=== PATIENT | male | born 1945 | race Caucasian/White ===

== ENCOUNTER 2017-03-05 13:03 | Inpatient (IN) | payer MEDICARE ==
[2017-03-05] MEDS ORDERED: Albuterol/Ipratropium NEB.SOL* Albuterol 2.5 MG/Ipratropium 0.5 MG 3 ML INH ONE (13:48)
[2017-03-05] MEDS ORDERED: cefTRIAXone(*) 1 GM in NS 0.9% 50 ML* 50 ML IVPB ONE (14:03)
[2017-03-05] MEDS ORDERED: Azithromycin IV(*) 500 MG in NS 0.9% 250 ML* 250 ML IVPB ONE (14:03)
[2017-03-05] MEDS: NS 0.9% 1000 ML*IV.FLUID IV ONE ×2 (14:08→16:10)
[2017-03-05 14:09] LABS: Hematocrit 43 % (42-52); Hemoglobin 14.6 g/dl (14.0-18.0); Mean Corpuscular HGB Conc 34 g/dl (31-36); Mean Corpuscular Hemoglobin 31 pg (27-31); Mean Corpuscular Volume 92 fL (80-94); Mean Platelet Volume 8 um3 (7.4-10.4); Platelet Count 394 10^3/ul (150-450); Red Blood Count 4.72 10^6/ul (4.0-5.4); Red Cell Distribution Width 14 % (10.5-15); White Blood Count 48.6 10^3/ul (3.5-10.8)
[2017-03-05 14:22] LABS: INR 1.2 (0.77-1.02)
[2017-03-05 14:26] LABS: EGFR Non-African American 138.1 (>60)
[2017-03-05] MEDS ORDERED: Iohexol 300* (CONTRAST) 10 ML SDV IV ONE (14:36)
[2017-03-05] MEDS ORDERED: cefTRIAXone(*) 1 GM in NS 0.9% 50 ML* 50 ML IVPB SCH (15:00)
--- NOTE | 2017-03-05 15:00 | ADMNOTE ---
Subjective Date of Service: 03/05/17 Interval History: ADMISSION HISTORY AND PHYSICAL EXAM: Allergies Allergy/AdvReac Type Severity Reaction Status Date / Time No Known Allergies Allergy Verified 03/05/17 13:26 Home medications: none HPI: Patient ill about a month with cough, some yellow sputum. Weight loss of 30 lbs in 3-4 months, poor appetite. No chills or sweats. He did not take his temperature. Some pain across lower anterior chest, did not use any analgesic. He saw Dr. Fisher and was referred for CXR and labs after which the Imaging staff advised him to go to the ED. Family History: Findings - mother had leiomyosarcome, brother had lung cancer Social History: Findings - Quit smoking about 1 1/2 yrs ago. No alcohol abuse. Lives with his who is his SDM. Past Medical History: Findings - R IHR 2010. Benign tumor removed from chest in remote past, also benign tumor from L back removed (? lipoma) On O2 2 L/min at home. Review of Systems - Measurements Intake and Output: Intake and Output Last 24 Hours 03/03/17 03/04/17 03/05/17 03/06/17 06:59 06:59 06:59 06:59 Weight 124 lb - Review of Systems Constitutional Symptoms: Positive: Weight Loss - 30 lbs in 3-4 months Dermatology: Positive: Normal HEENT: Positive: Normal Eyes: Positive: Normal Thyroid: Positive: Normal Pulmonary: Positive: Cough, Shortness of Breath, Home Oxygen Cardiology: Positive: Normal Gastroenterology: Positive: Anorexia Genital - Urinary: Positive: Normal Endocrinology: Positive: Normal Hematologic/Lymphatic: Negative: Anemia, Easy Brusing, Hx Leukemia, Hx Lymphoma, Use of Anticoagulant, Use of Antiplatelet Drugs, Other Neurology: Positive: Normal Psychiatry: Positive: Normal Allergic/Immunologic: Negative: Hx Anaphylaxis, Hx Angioedema, Hx Environmental, Hx Seasonal, Athsma, Hx HIV, Immunocompromise, Swollen Glands LymphNodes, Other Objective Active Medications: Hydrocodone Bitart/Acetaminophen ([place] 5-325 Tab*) 1 tab PO Q4H PRN PRN Reason: PAIN Sodium Chloride (Ns 0.9% 1000 Ml*) 1,000 mls @ 150 mls/hr IV PER RATE STEW Azithromycin 500 mg/ Sodium (Chloride) 250 mls @ 250 mls/hr IVPB ED ONCE ONE Stop: 03/05/17 15:02 Last Admin: 03/05/17 14:26 Dose: 250 mls/hr Ceftriaxone Sodium 1 gm/ (Sodium Chloride) 50 mls @ 200 mls/hr IVPB Q24H STEW Vital Signs - 8 hr 03/05/17 03/05/17 03/05/17 13:10 13:45 14:00 Temperature 97.8 F Pulse Rate 122 115 Respiratory 22 24 Rate Blood Pressure 117/60 137/86 123/84 (mmHg) O2 Sat by Pulse 94 98 Oximetry 03/05/17 14:19 Temperature Pulse Rate 105 Respiratory 30 Rate Blood Pressure (mmHg) O2 Sat by Pulse 96 Oximetry Oxygen Devices in Use Now: Nasal Cannula Appearance: Alert, sitting up on ED stretcher. In fair spirits. Mod tachypneic. Eyes: No Scleral Icterus Neck: NL Appearance and Movements; NL JVP, No Thyroid Enlargement, Masses Respiratory: Symmetrical Chest Expansion and Respiratory Effort, Clear to Auscultation, Clear to Percussion Cardiovascular: NL Sounds; No Murmurs; No JVD, RRR, No Edema, - Abdominal: NL Sounds; No Tenderness; No Distention, No Hepatosplenomegaly, - Lymphatic: No Cervical Adenopathy, No Axillary Adenopathy Extremities: No Edema, No Clubbing, Cyanosis, - Skin: No Rash or Ulcers, No Nodules or Sclerosis, - Neurological: Alert and Oriented x 3, NL Sensation Result Diagrams: 03/05/17 13:57 03/05/17 13:57 Microbiology and Other Data: Microbiology 03/05/17 14:15 Influenza Types A,B Antigen (KELBY) - Final Nasopharyngeal Specimen received for Influenza A/B Molecular testing Assess/Plan/Problems-Billing Assessment: - Patient Problems (1) Lung mass Current Visit: Yes Status: Acute Code(s): R91.8 - OTHER NONSPECIFIC ABNORMAL FINDING OF LUNG FIELD SNOMED Code(s): 656981231 Comment: CT w/contrast pending. Continue ceftriaxone and azith for possible post-obstructive PNA. (2) Hyponatremia Current Visit: Yes Status: Acute Code(s): E87.1 - HYPO-OSMOLALITY AND HYPONATREMIA SNOMED Code(s): 33911586 Comment: 1600 ml/day oral fluid restriction ordered. Repeat BMP in 2-3 days.
[2017-03-05 15:03] LABS: Monocytes % 14 % (0-13)
--- NOTE | 2017-03-05 15:09 | RAD ---
INDICATION: Right upper lobe mass, abnormal chest x-ray. COMPARISON: Correlation is made with a prior chest x-ray study from [facility] 2017. TECHNIQUE: A CT scan of the chest was performed with intravenous contrast following intravenous injection of 80 ml of Omnipaque 300 nonionic contrast. Contiguous axial sections were obtained from the lung apices through the lung bases. Images were reconstructed in the coronal and sagittal planes. FINDINGS: The lungs are hyperinflated. There is a large mass present in the right upper lobe which is heterogeneous in density measuring 14.5 x 15.4 x 10.0 cm in size. The mass abuts the lateral and mediastinal pleura. The mass appears to invade the chest wall eroding into the right lateral third and fourth ribs The mass encases the right upper lobe bronchus and narrows and surrounds the majority of the right mainstem bronchus except along its inferior aspect. In addition there are multiple pulmonary nodules present in the right lower lobe and a nodule in the right middle lobe. These measure up to 1.8 cm in size and would be most consistent with metastatic disease. No pleural effusion is seen. The mass extends into the right hilum. There are pretracheal and subcarinal lymph nodes measuring up to 1.2 cm in size consistent with metastatic disease. The heart is within normal limits in size. No pericardial effusion is present. The thoracic aorta is normal in caliber. Images of the upper abdomen demonstrate heterogeneous enhancement of the spleen. No focal hepatic abnormality is visualized. The adrenal glands are within normal limits. There is a small right renal cyst. There is a lucent lesion in the T7 vertebral body. The imaging characteristics would favor a hemangioma. As noted previously there appear to be erosive changes and invasion of the right lateral third and fourth ribs. There is a mild subacute appearing compression fracture of the superior endplate of the L2 vertebral body. IMPRESSION: 1. LARGE RIGHT UPPER LOBE MASS WITH FINDINGS MOST CONSISTENT WITH INVASION OF THE LATERAL CHEST WALL. 2. ENLARGED MEDIASTINAL LYMPH NODES CONSISTENT WITH METASTATIC DISEASE. 3. MULTIPLE PULMONARY NODULES IN THE RIGHT LOWER AND MIDDLE LOBES MOST CONSISTENT WITH METASTATIC DISEASE. 4. FINDINGS SUGGESTIVE OF INVASION OF THE RIGHT LATERAL THIRD AND FOURTH RIBS. 5. SUBACUTE COMPRESSION FRACTURE OF THE SUPERIOR ENDPLATE OF THE L2 VERTEBRAL BODY.
[2017-03-05] MEDS ORDERED: cefTRIAXone(*) 1 GM ADVAN/BAG ONE (15:49)
[2017-03-05] MEDS: Enoxaparin(*) 40 MG/0.4 ML SYR SUBCUT SCH (17:26)
[2017-03-05] MEDS: HYDROcodone/ACETAMIN 5-325 MG* 1 TAB PO PRN (17:26)
[2017-03-05] MEDS: NS 0.9% 1000 ML* 1,000 ML IV SCH (18:16)
--- NOTE | 2017-03-05 20:14 | ED ---
Alpesh Doll Tecjoon, scribed for Jose Davies MD on 03/05/17 at 1409 . Shortness of Breath - HPI Summary HPI Summary: This patient is a 71 year old male presenting to [facility] with a chief complaint of SOB since 4-5 days ago. Patient states that he has been feeling sick since before [place], or 2 weeks ago. Patient states that he was referred to ED by on-call doctor for pneumonia. Patient states he has had an x-ray done already. The pain is rated 10/10 in severity and described as burning. Symptoms aggravated by nothing. Symptoms alleviated by nothing. Patient additionally reports productive cough with yellow/green phlegm, slightly blood-tinged, chest congestion, and chest pain. Patient denies pedal edema. - History of Current Complaint Chief Complaint: EDUpperRespComplaint Time Seen by Provider: 03/05/17 13:31 Hx Obtained From: Patient Onset/Duration: Gradual Onset, Lasting Weeks - 2, Still Present, Worse Since - 4 -5 days ago Timing: Constant Current Severity: Severe - 10/10 Dyspnea At: Rest Aggrevating Factors: Nothing Associated Signs & Symptoms: Negative - pedal edema, Cough (Productive), Cough ( Bloody Sputum), Chest Pain w/Cough - Allergy/Home Medications Allergies/Adverse Reactions: Allergies Allergy/AdvReac Type Severity Reaction Status Date / Time No Known Allergies Allergy Verified 03/05/17 13:26 PMH/Surg Hx/FS Hx/Imm Hx Previously Healthy: Yes Opthamlomology History: Denies: Hx Legally Blind EENT History: Denies: Hx Deafness Infectious Disease History: No Infectious Disease History: Denies: Traveled Outside the [place] in Last 30 Days - Family History Known Family History: Positive: Diabetes - Social History Occupation: Retired Lives: With Family Alcohol Use: None Hx Substance Use: No Hx Tobacco Use: Yes Review of Systems Negative: Fever Positive: Chest Pain, Other - chest congestion Positive: Shortness Of Breath, Cough Negative: Edema All Other Systems Reviewed And Are Negative: Yes Physical Exam - Summary Physical Exam Summary: General: well-appearing, moderate respiratory distress Skin: warm, color reflects adequate perfusion, dry Head: normal Eyes: EOMI, JIE ENT: normal Neck: supple, nontender Respiratory: tachypnic. decreased breath sounds in right upper chest. good air flow elsewhere. Cardiovascular: Tachycardic. Abdomen: soft, nontender Bowel: present Musculoskeletal: normal, strength/ROM intact. No pedal edema Neurological: normal, sensory/motor intact, A&O x3 Psychological: affect/mood appropriate Triage Information Reviewed: Yes Vital Signs On Initial Exam: Initial Vitals Temp Pulse Resp BP Pulse Ox 97.8 F 122 22 117/60 94 03/05/17 13:10 03/05/17 13:10 03/05/17 13:10 03/05/17 13:10 03/05/17 13:10 Vital Signs Reviewed: Yes Diagnostics - Vital Signs Vital Signs Temp Pulse Resp BP Pulse Ox 03/05/17 13:10 97.8 F 122 22 117/60 94 - Laboratory Lab Results: Lab Results 03/05/17 03/05/17 03/05/17 Range/Units 13:57 13:57 13:57 WBC 48.6 H (3.5-10.8) 10^3/ul RBC 4.72 (4.0-5.4) 10^6/ul Hgb 14.6 (14.0-18.0) g/dl Hct 43 (42-52) % MCV 92 (80-94) fL MCH 31 (27-31) pg MCHC 34 (31-36) g/dl RDW 14 (10.5-15) % Plt Count 394 (150-450) 10^3/ul MPV 8 (7.4-10.4) um3 Neut % (Auto) Not Reportable Lymph % (Auto) Not Reportable Camp % (Auto) Not Reportable Eos % (Auto) Not Reportable Baso % (Auto) Not Reportable Absolute Neuts (auto) Not Reportable Absolute Lymphs (auto) Not Reportable Absolute Monos (auto) Not Reportable Absolute Eos (auto) Not Reportable Absolute Basos (auto) Not Reportable Absolute Nucleated RBC Not Reportable Immature Gran % 2 (0-9) % Neutrophils % 76 (38-83) % Band Neutrophils % 2 (0-8) % Lymphocytes % 3 L (25-47) % Monocytes % 14 H (0-13) % Eosinophils % 5 (0-6) % Basophils % 0 (0-2) % Nucleated RBC % Not Reportable Abs Neuts (Manual) 36.9 H (1.5-7.7) 10^3/ul Abs Monocytes (Manual) 6.8 H (0-0.8) 10^3/ul Absolute Eos (Manual) 2.4 H (0-0.6) 10^3/ul Abs Basophils (Manual) 0 (0-0.2) 10^3/ul Normal RBC Morphology Normal (Normal) Hem Pathologist Commnt Pending INR (Anticoag Therapy) 1.20 H (0.77-1.02) APTT 30.5 (26.0-36.3) seconds Sodium 127 L (133-145) mmol/L Potassium 4.2 (3.5-5.0) mmol/L Chloride 89 L (101-111) mmol/L Carbon Dioxide 29 (22-32) mmol/L Anion Gap 9 (2-11) mmol/L BUN 21 (6-24) mg/dL Creatinine 0.58 L (0.67-1.17) mg/dL Est GFR ( Amer) 177.6 (>60) Est GFR (Non-Af Amer) 138.1 (>60) BUN/Creatinine Ratio 36.2 H (8-20) Glucose 101 H (70-100) mg/dL Lactic Acid (0.5-2.0) mmol/L Calcium 11.8 H (8.6-10.3) mg/dL Total Bilirubin 0.80 (0.2-1.0) mg/dL AST 11 L (13-39) U/L ALT 10 (7-52) U/L Alkaline Phosphatase 87 (34-104) U/L Troponin I 0.01 (<0.04) ng/mL C-Reactive Protein 66.38 H (< 5.00) mg/L B-Natriuretic Peptide ( - 100) pg/mL Total Protein 7.6 (6.4-8.9) g/dL Albumin 3.4 (3.2-5.2) g/dL Globulin 4.2 H (2-4) g/dL Albumin/Globulin Ratio 0.8 L (1-3) Lipase < 10 L (11.0-82.0) U/L Influenza A (Rapid) (Negative) Influenza B (Rapid) (Negative) 03/05/17 03/05/17 03/05/17 Range/Units 13:57 13:57 14:22 WBC (3.5-10.8) 10^3/ul RBC (4.0-5.4) 10^6/ul Hgb (14.0-18.0) g/dl Hct (42-52) % MCV (80-94) fL MCH (27-31) pg MCHC (31-36) g/dl RDW (10.5-15) % Plt Count (150-450) 10^3/ul MPV (7.4-10.4) um3 Neut % (Auto) Lymph % (Auto) Camp % (Auto) Eos % (Auto) Baso % (Auto) Absolute Neuts (auto) Absolute Lymphs (auto) Absolute Monos (auto) Absolute Eos (auto) Absolute Basos (auto) Absolute Nucleated RBC Immature Gran % (0-9) % Neutrophils % (38-83) % Band Neutrophils % (0-8) % Lymphocytes % (25-47) % Monocytes % (0-13) % Eosinophils % (0-6) % Basophils % (0-2) % Nucleated RBC % Abs Neuts (Manual) (1.5-7.7) 10^3/ul Abs Monocytes (Manual) (0-0.8) 10^3/ul Absolute Eos (Manual) (0-0.6) 10^3/ul Abs Basophils (Manual) (0-0.2) 10^3/ul Normal RBC Morphology (Normal) Hem Pathologist Commnt INR (Anticoag Therapy) (0.77-1.02) APTT (26.0-36.3) seconds Sodium (133-145) mmol/L Potassium (3.5-5.0) mmol/L Chloride (101-111) mmol/L Carbon Dioxide (22-32) mmol/L Anion Gap (2-11) mmol/L BUN (6-24) mg/dL Creatinine (0.67-1.17) mg/dL Est GFR ( Amer) (>60) Est GFR (Non-Af Amer) (>60) BUN/Creatinine Ratio (8-20) Glucose (70-100) mg/dL Lactic Acid 2.0 (0.5-2.0) mmol/L Calcium (8.6-10.3) mg/dL Total Bilirubin (0.2-1.0) mg/dL AST (13-39) U/L ALT (7-52) U/L Alkaline Phosphatase (34-104) U/L Troponin I (<0.04) ng/mL C-Reactive Protein (< 5.00) mg/L B-Natriuretic Peptide 360 H ( - 100) pg/mL Total Protein (6.4-8.9) g/dL Albumin (3.2-5.2) g/dL Globulin (2-4) g/dL Albumin/Globulin Ratio (1-3) Lipase (11.0-82.0) U/L Influenza A (Rapid) Negative (Negative) Influenza B (Rapid) Negative (Negative) Result Diagrams: 03/05/17 13:57 03/05/17 13:57 Lab Statement: Any lab studies that have been ordered have been reviewed, and results considered in the medical decision making process. - CT CT Chest CT Interpretation: Positive (See Comments) - IMPRESSION: 1. LARGE RIGHT UPPER LOBE MASS WITH FINDINGS MOST CONSISTENT WITH INVASION OF THE LATERAL CHEST WALL. 2. ENLARGED MEDIASTINAL LYMPH NODES CONSISTENT WITH METASTATIC DISEASE 3. MULTIPLE PULMONARY NODULES IN THE RIGHT LOWER AND MIDDLE LOBES MOST CONSISTENT WITH METASTATIC DISEASE. 4. FINDINGS SUGGESTIVE OF INVASION OF THE RIGHT LATERAL THIRD AND FOURTH RIBS. 5. SUBACUTE COMPRESSION FRACTURE OF THE SUPERIOR ENDPLATE OF THE L2 VERTEBRAL BODY. ED physician has reviewed this radiology report. CT Interpretation Completed By: Radiologist - EKG 1359 Cardiac Rate: Tachycardia EKG Rhythm: Sinus Tachycardia - 109 BPM EKG Interpretation: Sinus Tachycardia (109 BPM), right atrial enlargement, no ectopy Course/Dx - Course Course Of Treatment: This patient is a 71 year old male presenting to [facility] with a chief complaint of SOB since 4-5 days ago. Patient states that he has been feeling sick since before [place], or 2 weeks ago. Patient states that he was referred to ED by on-call doctor for pneumonia. Patient states he has had an x-ray done already. The pain is rated 10/10 in severity and described as burning. Symptoms aggravated by nothing. Symptoms alleviated by nothing. Patient additionally reports productive cough with yellow/green phlegm, slightly blood-tinged, chest congestion, and chest pain. Patient denies pedal edema. An EKG, taken 1359, reveals Sinus Tachycardia (109 BPM), right atrial enlargement, no ectopy. CT Chest reveals, per radiologist, IMPRESSION: 1. LARGE RIGHT UPPER LOBE MASS WITH FINDINGS MOST CONSISTENT WITH INVASION OF THE LATERAL CHEST WALL. 2. ENLARGED MEDIASTINAL LYMPH NODES CONSISTENT WITH METASTATIC DISEASE 3. MULTIPLE PULMONARY NODULES IN THE RIGHT LOWER AND MIDDLE LOBES MOST CONSISTENT WITH METASTATIC DISEASE. 4. FINDINGS SUGGESTIVE OF INVASION OF THE RIGHT LATERAL THIRD AND FOURTH RIBS. 5. SUBACUTE COMPRESSION FRACTURE OF THE SUPERIOR ENDPLATE OF THE L2 VERTEBRAL BODY. ED physician has reviewed this radiology report. Bloodwork Obtained. Urinalysis Obtained. Medications reviewed In the ED course the patient was given Albuterol, Iohexol , Rocephin, Zithromax. ADMIT HOSPITALIST. CRITICAL CARE TIME LESS THAN 30 MINUTES. - Diagnoses Provider Diagnoses: Pneumonia, Lung cancer Discharge - Discharge Plan Condition: Fair Disposition: ADMITTED TO [facility] documentation as recorded by the Alpesh navarro Tecjoon accurately reflects the service I personally performed and the decisions made by , Jose Davies MD.
[2017-03-05] MEDS: oxyCODONE TAB* 5 MG TAB PO PRN (20:50)
[2017-03-05 23:29] LABS: Urine Appearance Clear; Urine Blood Negative (Negative); Urine Color Yellow; Urine Ketones Trace (Negative); Urine Protein Negative (Negative); Urine Specific Gravity > 1.060 (1.010-1.030); Urine Urobilinogen Positive (Negative)
[2017-03-06] MEDS: NS 0.9% 1000 ML* 1,000 ML IV SCH ×3 (03:05→22:25)
[2017-03-06] MEDS: HYDROcodone/ACETAMIN 5-325 MG* 1 TAB PO PRN ×3 (03:32→12:28)
[2017-03-06] MEDS: guaiFENesin ER TAB 600 MG PO SCH ×2 (09:08→20:32)
[2017-03-06] MEDS ORDERED: cefTRIAXone(*) 1 GM in NS 0.9% 50 ML* 50 ML IVPB SCH (15:00)
[2017-03-06] MEDS ORDERED: Azithromycin IV(*) 500 MG in NS 0.9% 250 ML* 250 ML IVPB SCH (16:00)
--- NOTE | 2017-03-06 16:09 | PN ---
Subjective Date of Service: 03/06/17 Interval History: Good relief with hydrocodone/APAP. He denies change in chronic dyspnea. Family History: Findings - mother had leiomyosarcome, brother had lung cancer Social History: Findings - Quit smoking about 1 1/2 yrs ago. No alcohol abuse. Lives with his who is his SDM. Past Medical History: Findings - R IHR 2010. Benign tumor removed from chest in remote past, also benign tumor from L back removed (? lipoma) On O2 2 L/min at home. Objective Active Medications: Hydrocodone Bitart/Acetaminophen ([place] 5-325 Tab*) 1 tab PO Q4H PRN PRN Reason: PAIN Last Admin: 03/06/17 12:28 Dose: 1 tab Enoxaparin Sodium (Lovenox(*)) 40 mg SUBCUT Q24H [facility] Last Admin: 03/05/17 17:26 Dose: 40 mg Fentanyl (Duragesic Patch 12 Mcg/Hr *) 12 mcg TRANSDERM Q72H [facility] Guaifenesin (Mucinex*) 1,200 mg PO BID [facility] Last Admin: 03/06/17 09:08 Dose: 1,200 mg Sodium Chloride (Ns 0.9% 1000 Ml*) 1,000 mls @ 150 mls/hr IV PER RATE [facility] Last Admin: 03/06/17 12:28 Dose: 150 mls/hr Azithromycin 500 mg/ Sodium (Chloride) 250 mls @ 250 mls/hr IVPB Q24H STEW Ceftriaxone Sodium 1 gm/ (Sodium Chloride) 50 mls @ 200 mls/hr IVPB 1500 STEW Omeprazole (Prilosec Cap*) 20 mg PO DAILY@0600 [facility] Oxycodone HCl (Roxycodone Tab*) 2.5 mg PO Q4H PRN PRN Reason: PAIN Last Admin: 03/05/17 20:50 Dose: 2.5 mg Phytonadione (Vitamin K Oral Solution*) 10 mg PO ONCE ONE Stop: 03/06/17 15:50 Vital Signs - 8 hr 03/06/17 03/06/17 03/06/17 09:08 11:15 11:34 Temperature 97.3 F Pulse Rate 85 Respiratory 20 18 18 Rate Blood Pressure 100/53 (mmHg) O2 Sat by Pulse 98 Oximetry 03/06/17 12:28 Temperature Pulse Rate Respiratory 18 Rate Blood Pressure (mmHg) O2 Sat by Pulse Oximetry Oxygen Devices in Use Now: Nasal Cannula Appearance: Alert, in a chair. In good spirits. More tachypneic today. Eyes: No Scleral Icterus Respiratory: Symmetrical Chest Expansion and Respiratory Effort, - - diminished BS R upper chest Cardiovascular: NL Sounds; No Murmurs; No JVD, RRR, No Edema, - Extremities: No Edema, No Clubbing, Cyanosis, - Skin: No Rash or Ulcers, No Nodules or Sclerosis, - Neurological: Alert and Oriented x 3, NL Sensation Result Diagrams: 03/05/17 13:57 03/05/17 13:57 Additional Lab and Data: Lab Results 03/05/17 03/05/17 03/05/17 Range/Units 13:57 13:57 13:57 WBC 48.6 H (3.5-10.8) 10^3/ul RBC 4.72 (4.0-5.4) 10^6/ul Hgb 14.6 (14.0-18.0) g/dl Hct 43 (42-52) % MCV 92 (80-94) fL MCH 31 (27-31) pg MCHC 34 (31-36) g/dl RDW 14 (10.5-15) % Plt Count 394 (150-450) 10^3/ul MPV 8 (7.4-10.4) um3 Neut % (Auto) Not Reportable Lymph % (Auto) Not Reportable [place] % (Auto) Not Reportable Eos % (Auto) Not Reportable Baso % (Auto) Not Reportable Absolute Neuts (auto) Not Reportable Absolute Lymphs (auto) Not Reportable Absolute Monos (auto) Not Reportable Absolute Eos (auto) Not Reportable Absolute Basos (auto) Not Reportable Absolute Nucleated RBC Not Reportable Immature Gran % 2 (0-9) % Neutrophils % 76 (38-83) % Band Neutrophils % 2 (0-8) % Lymphocytes % 3 L (25-47) % Monocytes % 14 H (0-13) % Eosinophils % 5 (0-6) % Basophils % 0 (0-2) % Nucleated RBC % Not Reportable Abs Neuts (Manual) 36.9 H (1.5-7.7) 10^3/ul Abs Monocytes (Manual) 6.8 H (0-0.8) 10^3/ul Absolute Eos (Manual) 2.4 H (0-0.6) 10^3/ul Abs Basophils (Manual) 0 (0-0.2) 10^3/ul Normal RBC Morphology Normal (Normal) Hem Pathologist Commnt Pending INR (Anticoag Therapy) 1.20 H (0.77-1.02) APTT 30.5 (26.0-36.3) seconds Sodium 127 L (133-145) mmol/L Potassium 4.2 (3.5-5.0) mmol/L Chloride 89 L (101-111) mmol/L Carbon Dioxide 29 (22-32) mmol/L Anion Gap 9 (2-11) mmol/L BUN 21 (6-24) mg/dL Creatinine 0.58 L (0.67-1.17) mg/dL Est GFR ( Amer) 177.6 (>60) Est GFR (Non-Af Amer) 138.1 (>60) BUN/Creatinine Ratio 36.2 H (8-20) Glucose 101 H (70-100) mg/dL Lactic Acid (0.5-2.0) mmol/L Calcium 11.8 H (8.6-10.3) mg/dL Total Bilirubin 0.80 (0.2-1.0) mg/dL AST 11 L (13-39) U/L ALT 10 (7-52) U/L Alkaline Phosphatase 87 (34-104) U/L Troponin I 0.01 (<0.04) ng/mL C-Reactive Protein 66.38 H (< 5.00) mg/L B-Natriuretic Peptide ( - 100) pg/mL Total Protein 7.6 (6.4-8.9) g/dL Albumin 3.4 (3.2-5.2) g/dL Globulin 4.2 H (2-4) g/dL Albumin/Globulin Ratio 0.8 L (1-3) Lipase < 10 L (11.0-82.0) U/L Influenza A (Rapid) (Negative) Influenza B (Rapid) (Negative) 03/05/17 03/05/17 03/05/17 Range/Units 13:57 13:57 14:22 WBC (3.5-10.8) 10^3/ul RBC (4.0-5.4) 10^6/ul Hgb (14.0-18.0) g/dl Hct (42-52) % MCV (80-94) fL MCH (27-31) pg MCHC (31-36) g/dl RDW (10.5-15) % Plt Count (150-450) 10^3/ul MPV (7.4-10.4) um3 Neut % (Auto) Lymph % (Auto) [place] % (Auto) Eos % (Auto) Baso % (Auto) Absolute Neuts (auto) Absolute Lymphs (auto) Absolute Monos (auto) Absolute Eos (auto) Absolute Basos (auto) Absolute Nucleated RBC Immature Gran % (0-9) % Neutrophils % (38-83) % Band Neutrophils % (0-8) % Lymphocytes % (25-47) % Monocytes % (0-13) % Eosinophils % (0-6) % Basophils % (0-2) % Nucleated RBC % Abs Neuts (Manual) (1.5-7.7) 10^3/ul Abs Monocytes (Manual) (0-0.8) 10^3/ul Absolute Eos (Manual) (0-0.6) 10^3/ul Abs Basophils (Manual) (0-0.2) 10^3/ul Normal RBC Morphology (Normal) Hem Pathologist Commnt INR (Anticoag Therapy) (0.77-1.02) APTT (26.0-36.3) seconds Sodium (133-145) mmol/L Potassium (3.5-5.0) mmol/L Chloride (101-111) mmol/L Carbon Dioxide (22-32) mmol/L Anion Gap (2-11) mmol/L BUN (6-24) mg/dL Creatinine (0.67-1.17) mg/dL Est GFR ( Amer) (>60) Est GFR (Non-Af Amer) (>60) BUN/Creatinine Ratio (8-20) Glucose (70-100) mg/dL Lactic Acid 2.0 (0.5-2.0) mmol/L Calcium (8.6-10.3) mg/dL Total Bilirubin (0.2-1.0) mg/dL AST (13-39) U/L ALT (7-52) U/L Alkaline Phosphatase (34-104) U/L Troponin I (<0.04) ng/mL C-Reactive Protein (< 5.00) mg/L B-Natriuretic Peptide 360 H ( - 100) pg/mL Total Protein (6.4-8.9) g/dL Albumin (3.2-5.2) g/dL Globulin (2-4) g/dL Albumin/Globulin Ratio (1-3) Lipase (11.0-82.0) U/L Influenza A (Rapid) Negative (Negative) Influenza B (Rapid) Negative (Negative) Microbiology and Other Data: Microbiology 03/05/17 14:15 Influenza Types A,B Antigen (KELBY) - Final Nasopharyngeal Specimen received for Influenza A/B Molecular testing Assess/Plan/Problems-Billing Assessment: - Patient Problems (1) Lung mass Current Visit: Yes Status: Acute Code(s): R91.8 - OTHER NONSPECIFIC ABNORMAL FINDING OF LUNG FIELD SNOMED Code(s): 688342311 Comment: CT w/contrast showed large RUL mass, mult nodules RML, RLL. Continue ceftriaxone and azith for possible post-obstructive PNA. CT abd/ pelvis w/ ordered. CT biopsy R lung ordered for 03/07. (2) Hyponatremia Current Visit: Yes Status: Acute Code(s): E87.1 - HYPO-OSMOLALITY AND HYPONATREMIA SNOMED Code(s): 04656816 Comment: 1600 ml/day oral fluid restriction ordered. Repeat BMP in 03/07.
[2017-03-06] MEDS: Omeprazole CAP* 20 MG PO SCH (16:29)
[2017-03-06] MEDS: Enoxaparin(*) 40 MG/0.4 ML SYR SUBCUT SCH (16:36)
[2017-03-06] MEDS ORDERED: Iohexol 300* (CONTRAST) 10 ML SDV IV SCH (16:43)
[2017-03-06] MEDS ORDERED: fentaNYL PATCH 12 MCG/HR TRANSDERM SCH (17:00)
[2017-03-06] MEDS: oxyCODONE TAB* 5 MG TAB PO PRN (17:24)
[2017-03-06] MEDS: Phytonadione Oral Solution* 5 MG/25 ML UDC PO ONE ×2 (17:56→19:17)
--- NOTE | 2017-03-06 18:42 | RAD ---
INDICATION: Lung mass metastatic workup. COMPARISON: Comparison is made with a prior CT of the chest from [facility] 2017. TECHNIQUE: A CT scan of the abdomen and pelvis was performed with intravenous and oral contrast following intravenous injection of 76 ml of Omnipaque 300 nonionic contrast. Contiguous axial sections were obtained from the lung bases through the symphysis pubis. Images were reconstructed in the coronal and sagittal planes. FINDINGS: There is a 2 cm nodule present in the right lower lobe seen at the lung base and a 0.5 cm nodule in the right middle lobe seen at the lung base. There are new small bilateral pleural effusions and a small dependent right lower lobe infiltrate most consistent with atelectasis. There is a trace pericardial effusion which appears new. The liver is moderately enlarged. There are couple calcifications within the liver although no other focal abnormalities are seen. There is mild intraductal distention. The common bile duct measures up to 1.0 cm in diameter. There appears to be mild gallbladder wall thickening. No gallstones are seen. The spleen is normal in size with several calcifications most consistent with old granulomatous disease. The pancreas appears to be within normal limits. There is a 1 cm area of increased density in the left adrenal gland possibly representing a small nodule. The right adrenal gland appears to be within normal limits. The kidneys are normal in size. There is a 1.5 cm cyst present in the upper pole of the right kidney. No hydronephrosis is present. No renal calculi are seen. The aorta is normal in caliber with moderate calcific plaque present. There are couple mildly prominent retroperitoneal lymph nodes noted in the upper abdomen measuring up to 0.9 cm in transverse dimension. The stomach, small and large bowel appear nondistended. The appendix is within normal limits. There are a few scattered diverticuli. There is no evidence for diverticulitis or colitis. No free intraperitoneal air or fluid is seen. There is a mild compression fracture of the superior endplate of the L2 vertebral body which is likely subacute in duration. No other focal osseous abnormalities are seen. IMPRESSION: 1. RIGHT MIDDLE LOBE AND LOWER LOBE PULMONARY NODULES MOST CONSISTENT WITH METASTATIC DISEASE 2. NEW SMALL BILATERAL PLEURAL EFFUSIONS AND NEW TRACE PERICARDIAL EFFUSION. 3. POSSIBLE 1.0 CM LEFT ADRENAL NODULE. 4. MILD INTRA-AND EXTRAHEPATIC DISTENTION. 5. MILD GALLBLADDER WALL THICKENING. RECOMMEND A RIGHT UPPER QUADRANT ULTRASOUND FOR FURTHER EVALUATION. 6. FINDINGS CONSISTENT WITH OLD GRANULOMATOUS DISEASE. 7. MILD SUBACUTE COMPRESSION FRACTURE OF THE SUPERIOR ENDPLATE OF THE L2 VERTEBRAL BODY.
[2017-03-06] MEDS: fentaNYL Patch Check Q Shift 1 NOTE SCH (20:31)
[2017-03-07] MEDS: Morphine INJ* 2 MG/ML 1 ML SYRINGE (TWO MG - NEW SYRINGE VERSION) IV PRN ×2 (00:58→06:50)
[2017-03-07] MEDS: Omeprazole CAP* 20 MG PO SCH (06:50)
[2017-03-07] MEDS: fentaNYL Patch Check Q Shift 1 NOTE SCH (06:53)
[2017-03-07 08:11] LABS: Hematocrit 38 % (42-52); Hemoglobin 12.5 g/dl (14.0-18.0); Mean Corpuscular HGB Conc 33 g/dl (31-36); Mean Corpuscular Hemoglobin 30 pg (27-31); Mean Corpuscular Volume 93 fL (80-94); Mean Platelet Volume 8 um3 (7.4-10.4); Platelet Count 284 10^3/ul (150-450); Red Blood Count 4.12 10^6/ul (4.0-5.4); Red Cell Distribution Width 14 % (10.5-15); White Blood Count 35.5 10^3/ul (3.5-10.8)
[2017-03-07 08:52] LABS: ABS Basophils 0.4 10^3/ul (0-0.2); ABS Eosinophils 2.2 10^3/ul (0-0.6); ABS Lymphocytes 0.7 10^3/ul (1.0-4.8); ABS Monocytes 4.6 10^3/ul (0-0.8); ABS Neutrophils 27.6 10^3/ul (1.5-7.7); ABS Nucleated RBC 0 10^3/ul; Eosinophil % 6.1 % (0-6); Lymphocyte % 1.9 % (25-47); Nucleated Red Blood Cells % 0
[2017-03-07] MEDS: guaiFENesin ER TAB 600 MG PO SCH (08:58)
[2017-03-07 09:06] LABS: EGFR Non-African American 218.3 (>60)
[2017-03-07] MEDS ORDERED: cefTRIAXone(*) 1 GM in D5W 50 ML BAG* 50 ML IVPB SCH (09:20)
--- NOTE | 2017-03-07 15:20 | PN ---
"Progress Note - Progress Note Date of Service: 03/07/17 Note: Search Terms: silvia zep[birth year], 1945 Search Date: 03/07/2017 03:19:56 PM The Drug Utilization Report below displays all of the controlled substance prescriptions, if any, that your patient has filled in the last twelve months. The information displayed on this report is compiled from pharmacy submissions to the Department, and accurately reflects the information as submitted by the pharmacies. This report was requested by: Dago Shelton | Reference #: [id number] There are no results for the search terms that you entered."
[2017-03-07] MEDS: Enoxaparin(*) 40 MG/0.4 ML SYR SUBCUT SCH (15:39)
[2017-03-07] MEDS ORDERED: Azithromycin TAB* 250 MG PO SCH (16:00)
--- NOTE | 2017-03-07 16:25 | RAD ---
INDICATION: Right upper lobe mass largely replacing the right upper lobe COMPARISON: CT of the chest March 05, 2017 PROCEDURE NOTE AND IMAGING FINDINGS: The benefits of the and risks of procedure explained to the patient. The patient consented for the exam. The patient was brought to the ultrasound suite and multiple images of the right hemithorax were obtained. The mass corresponding to prior imaging was identified overlying the anterolateral right hemithorax. The site was marked. A formal time out was performed before beginning the procedure. The patient was prepped and draped in the usual sterile fashion. The patient?s anterolateral axilla was anesthetized with 1% lidocaine. Color flow imaging was acquired of the intended percutaneous biopsy tract to avoid the lateral thoracic or any other subcutaneous arteries. Under sonographic control a fine needle aspiration was acquired utilizing a 20 gauge needle. According to the same technique, 2 additional fine-needle aspirations were acquired and provided to the attending cytopathologist. Postbiopsy imaging does not show any excessive bleeding or signs of a pneumothorax. The patient tolerated the procedure without incident. IMPRESSION: Uncomplicated ultrasound-guided thoracic biopsy as described in the body of the report.
[2017-03-07 19:36] VITALS: BP 107/55
--- NOTE | 2017-03-07 23:34 | CONS ---
CONSULTATION REPORT: DATE OF CONSULT: 03/07/17 REFERRING PHYSICIAN: Dr. Shelton. PRIMARY CARE PHYSICIAN: Omar Fisher MD REASON FOR CONSULT: Pulmonary mass. HISTORY OF PRESENT ILLNESS: A 71-year-old male who had a [id number] smoking history, but who quit smoking 16 months ago. He had been doing well until this summer. He noticed mowing his lawn that he can only mow about a third of the lawn before he had to sit down and take rest. This happened once, he thought it was a bad day, but then the symptom persisted through the summer. In the fall, he had continued difficulty breathing and started to notice juanita loss. He has lost 45 pounds in the last 4-1/2 months. It was really in January and later January that his breathing started to get worse and worse. He started to have difficulty with daily activities. He could not lie flat anymore. He had to sleep sitting up. This triggered him to make an appointment to see Dr. Omar Fisher. He was seen by Dr. Fisher around 03/05/17 and was sent directly over to the emergency room to have x-rays done. He had a chest x-ray on early in the morning that showed a right upper lobe mass with probable postobstructive pneumonia as well as a right lower lobe lesion suspicious for metastatic disease. He went for a CT scan later that day, which showed a right lower lobe mass, 14 x 15 cm with invasion of lateral chest wall, large mediastinal lymph nodes, multiple additional pulmonary nodules mostly on the right side. There was also a compression fracture at L2. Adrenal glands and liver were unremarkable. He was sent to the emergency room and admitted. He had a CT scan of the abdomen and pelvis that showed a 1 cm left adrenal lesion and gallbladder thickening and the L2 compression fracture, but no clear liver disease. On both scans, bone windows do not show overt metastases. He had CBC done that shows a white count of 42,000, primarily with 75% lymphocytes, lots of elevated monocytes and eosinophils, hemoglobin was 16.8 on admission and decreased to 12.5 with hydration, and he had normal platelets. He had a sodium of 126 on admission, went up to 132 with fluid restriction and creatinine started at 0.58, but went down to 0.39 and a C-reactive protein 66.38. Albumin is 3.4, globulin elevated at 4.2. Urine was negative, normal coagulation studies. There is no clear evidence for postobstructive pneumonemia on the CT scan. PAST MEDICAL HISTORY: COPD, otherwise healthy. PAST SURGICAL HISTORY: Hernia repair between 1999 and 2004 and removal of benign growth. He had Dr. Olivier as the surgeon, he likes him very much. ALLERGIES: STEVE-SELTZER. FAMILY HISTORY: Mother of brain cancer at 45. Brother had lung cancer and in his 50s and the father of dementia in older age. Children are healthy. SOCIAL HISTORY: Retired 2 years ago. 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 He has 2 daughters, , and a daughter and his are with him in clinic today. Drinks occasionally. REVIEW OF SYSTEMS: General: Fatigued, anorexic. HEENT: Wears glasses, otherwise negative. Lungs: Severe shortness of breath. Heart: No chest pain , palpitations. GI: Weight loss. He is moving his bowels. Not eating much. : Negative. Musculoskeletal: No outstanding focal symptoms. Neurologic: No compromise. Skin: Negative. Hematologic: Negative. PHYSICAL EXAM: Vital Signs: BP 102/53, temperature 96.7, heart rate 97, O2 sat 97% on 4 L room air, respiratory rate 18. HEENT: Mucosa moist, no lesions. He is thin. Conjunctivae pale. Lungs: He is struggling to breathe while he talks. There is no wheezing and no crackles. He does have good sounds on the right despite the mass. Heart: Regular rhythm. S1, S2. No murmurs or gallops. Abdomen: Nontender, nondistended. Liver edge is palpable. No spleen. Nodes: No cervical, supraclavicular lymphadenopathy. Neuro: Alert and oriented x3. Grossly nonfocal. Extremities: He has got +2 edema in both lower extremities and +2 clubbing throughout. Skin: No subcutaneous lesions. DIAGNOSTIC STUDIES/LAB DATA: Reviewed, as above. ASSESSMENT: A 71-year-old male with large mass, biopsy today. Highly suspicious for lung cancer. Differential diagnosis would be led by small cell cancer given timeline of progression then non-small cell cancer or an atypical thoracic malignancy is also possible. He has a compromised performance status, ECOG 2 to 3 with severe shortness of breath. Discussed diagnosis of lung cancer. If it is small cell cancer, he would be a candidate for chemotherapy because we would expect a rapid improvement. If it is a non-small cancer, there may not be any viable treatment options. Chemotherapy has poor outcomes in a low performance status patient for non-small cell lung cancer, if he has a targetable mutation such as ALK fusion, ROS1 or EGFR or if he has a PD1 of over 50%, oral therapy and immunotherapy respectively may be options. Additionally, he has marked leukocytosis with a left shift. This could be leukemoid reaction to his cancer. However, I am suspicious there is also an underlying CML. PLAN: 1. He is going home from the hospital today. I will follow up on his biopsy results and plan a return to clinic likely Tuesday. Case discussed with pathology. 2. We will present him in Tumor Board on Tuesday to get the opinion of Dr. De Luna. 3. We will send additional hematologic studies as an outpatient. 4. He can call our office if there are any concerns after discharge including pain, shortness of breath. [id number]/[facility] #: [id number] [facility]
--- NOTE | 2017-03-09 00:30 | DS ---
CC: Dr. Hall; Omar Fisher MD * DISCHARGE SUMMARY: DATE OF ADMISSION: 03/05/17 DATE OF DISCHARGE: 03/07/17 HISTORY OF PRESENT ILLNESS: This 71-year-old man presented with a month's history of cough with some yellowish sputum production. He says he had lost 30 pounds in the past 3 to 4 months oxygen 2 L per minute. He tended to deny and minimize some of his symptoms, but his family thought he was more tachypneic and having more trouble breathing than he had in the past. X-ray in the emergency room showed a large right upper lobe mass with a nodule in the right lobe of the lung. CT scan confirmed this. He was treated with ceftriaxone and azithromycin for possible postobstructive pneumonia. He had a percutaneous needle biopsy of the right lung mass on 03/07/17 by the radiologist. Report of this is pending. FINAL DIAGNOSES: 1. Lung mass. 2. Chronic obstructive pulmonary disease. 3. Hyponatremia. DISCHARGE MEDICATIONS: 1. Azithromycin 250 mg daily, to complete a 5-day course. 2. Fentanyl patch 12 mcg/hour every 72 hours. 3. Hydrocodone/acetaminophen 5/325 every 4 hours p.r.n. 4. Cefuroxime 500 mg b.i.d., to complete a 7-day course. Dr. Hall saw the patient in consultation and will arrange for followup with the patient when the biopsy results are available. [id number]/[facility] #: [id number] MTDD
== END 2017-03-07 19:15 | disposition home or self-care (01) | DRG 204 ==
LOC: ED 13:03 → MED 15:54
PROVIDERS: ADMIT Internal Medicine; ATTEND Internal Medicine
PROC: 0BBK3ZX Excision of Right Lung, Percutaneous Approach, Diagnostic (ICD-10-PCS; principal; 2017-03-07)
DX: R91.8 Other nonspecific abnormal finding of lung field (principal); E27.8 Other specified disorders of adrenal gland; J44.9 Chronic obstructive pulmonary disease, unspecified; E87.1 Hypo-osmolality and hyponatremia; D72.829 Elevated white blood cell count, unspecified; M48.56XA Collapsed vertebra, not elsewhere classified, lumbar region, initial encounter for fracture; Z80.1 Family history of malignant neoplasm of trachea, bronchus and lung; Z83.3 Family history of diabetes mellitus; Z87.891 Personal history of nicotine dependence; Z88.8 Allergy status to other drugs, medicaments and biological substances; Z80.8 Family history of malignant neoplasm of other organs or systems; Z81.8 Family history of other mental and behavioral disorders; Z72.89 Other problems related to lifestyle
CPT/HCPCS: 36415; 71046; 71260; 74177; 76942; 80048; 80053; 81003; 81015; 83605; 83690; 83880; 84484; 85025; 85060; 85610; 85730; 86140; 87040; 87070; 87086; 87102; 87116; 87205; 87206; 87502; 88172; 88173; 88177; 88305; 88341; 88342; 88360; 93005; 94640; 99223; A9270-GY; J0456; J0696; J1650; J2270; J3010; Q9967

== ENCOUNTER 2017-03-20 11:05 | Inpatient (IN) | payer MEDICARE ==
[2017-03-20 11:41] LABS: Hematocrit 41 % (42-52); Hemoglobin 13.3 g/dl (14.0-18.0); Mean Corpuscular HGB Conc 33 g/dl (31-36); Mean Corpuscular Hemoglobin 30 pg (27-31); Mean Corpuscular Volume 94 fL (80-94); Mean Platelet Volume 9 um3 (7.4-10.4); Platelet Count 151 10^3/ul (150-450); Red Blood Count 4.37 10^6/ul (4.0-5.4); Red Cell Distribution Width 14 % (10.5-15); White Blood Count 38.2 10^3/ul (3.5-10.8)
[2017-03-20] MEDS ORDERED: Levofloxacin 750 MG IVPREMIX(* 750 MG/150 ML BAG IVPB ONE (11:45)
[2017-03-20] MEDS ORDERED: NS 0.9% 1000 ML* 1,000 ML IV ONE (11:45)
[2017-03-20 11:52] LABS: INR 1.4 (0.77-1.02)
[2017-03-20 11:54] LABS: EGFR Non-African American 218.3 (>60)
--- NOTE | 2017-03-20 12:05 | RAD ---
HISTORY: Shortness of breath COMPARISONS: CT dated March 10, 2017, March 05, 2009 VIEWS: 1: frontal portable view of the chest at 11:35 AM FINDINGS: LINES AND TUBES: None. CARDIOMEDIASTINAL SILHOUETTE: The cardiomediastinal silhouette is stable. PLEURA: There is blunting of the right costophrenic angle. LUNG PARENCHYMA: Again noted is opacification of the right upper and midlung rader corresponding to the large mass noted on previous CT. ABDOMEN: The upper abdomen is clear. There is no subphrenic gas. BONES AND SOFT TISSUES: No bone or soft tissue abnormalities are noted. IMPRESSION: STABLE RIGHT UPPER LUNG MASS. SMALL RIGHT PLEURAL EFFUSION.
[2017-03-20 12:11] LABS: Monocytes % 7 % (0-13)
[2017-03-20] MEDS ORDERED: Albuterol/Ipratropium NEB.SOL* Albuterol 2.5 MG/Ipratropium 0.5 MG 3 ML INH PRN (13:27)
[2017-03-20] MEDS ORDERED: HYDROcodone/ACETAMIN 5-325 MG* 1 TAB PO PRN (13:28)
[2017-03-20] MEDS ORDERED: Diazepam TAB(NF) 2 MG TAB - use 2.5 of 5 mg tab autosub PO PRN (13:28)
--- NOTE | 2017-03-20 13:52 | ED ---
Praveen Doll Julia, scribed for Marques Delaney MD on 03/20/17 at 1137 . Shortness of Breath - HPI Summary HPI Summary: This patient is a 71 year old M BIBA to [facility] accompanied by family with a chief complaint of recently worsening SOB and productive cough for the past few weeks. The patient rates the pain 7/10 in severity. Family reports symptoms have dramatically worsened this morning and the patient began coughing up pink stuff. Patient at baseline use 4L of oxygen. Patients family reports recent radiation treatment for his stage 3 lung CA. - History of Current Complaint Chief Complaint: EDShortnessOfBreath Time Seen by Provider: 03/20/17 11:20 Hx Obtained From: Family/Anatomy Professor Hx From Patient Unobtainable Due To: Other - SOB Onset/Duration: Gradual Onset, Still Present, Worse Since - this morning Timing: Constant Current Severity: Severe Dyspnea At: Rest Associated Signs & Symptoms: Cough (Productive), Cough (Bloody Sputum) - Allergy/Home Medications Allergies/Adverse Reactions: Allergies Allergy/AdvReac Type Severity Reaction Status Date / Time No Known Allergies Allergy Verified 03/20/17 11:19 PMH/Surg Hx/FS Hx/Imm Hx Endocrine/Hematology History: Denies: Hx Diabetes Respiratory History: Reports: Other Respiratory Problems/Disorders - lung CA Denies: Hx Asthma, Hx Chronic Obstructive Pulmonary Disease (COPD) Sensory History: Reports: Hx Contacts or Glasses Denies: Hx Legally Blind, Hx Deafness, Hx Hearing Aid Opthamlomology History: Reports: Hx Contacts or Glasses Denies: Hx Legally Blind - Cancer History Cancer Type, Location and Year: tumor removed from left left lung Infectious Disease History: No Infectious Disease History: Denies: Traveled Outside the [place] in Last 30 Days - Family History Known Family History: Positive: Diabetes - Social History Alcohol Use: None Hx Substance Use: No Substance Use Type: Reports: None Hx Tobacco Use: Yes Smoking Status (MU): Former Smoker Review of Systems Negative: Fever Positive: Shortness Of Breath, Cough - productive All Other Systems Reviewed And Are Negative: Yes Physical Exam - Summary Physical Exam Summary: Appearance: The patient is cachectic. Skin: The skin is warm and dry and skin color reflects adequate perfusion. HEENT: The head is normocephalic and atraumatic. The pupils are equal and reactive. The conjunctivae are clear and without drainage. Nares are patent and without drainage. Mouth reveals moist mucous membranes and the throat is without erythema and exudate. The external ears are intact. The ear canals are patent and without drainage. The tympanic membranes are intact. Neck: the neck is supple with full range of motion and non-tender. There are no carotid bruits. There is no neck vein distension. Respiratory: Chest is non-tender. Upper respiratory sounds are wet. Cardiovascular: Heart is tachycardic rate and regular rhythm. There is no murmur or rub auscultated. There is mild bilateral LE pitting edema and pulses are symmetrical and equal. HJR test is positive. Abdomen: The abdomen is soft with RUQ tenderness. There are normal bowel sounds heard in all four quadrants and there is no organomegaly palpated. Musculoskeletal: There is no back tenderness noted. Extremities are non-tender with full range of motion. There is good capillary refill. There is slight bilateral peripheral edema but no calf tenderness elicited. Neurological: Patient is alert and oriented to person, place and time. The patient has symmetrical motor strength in all four extremities. Cranial nerves are grossly intact. Deep tendon reflexes are symmetrical and equal in all four extremities. Psychiatric: The patient has an appropriate affect and does not exhibit any anxiety or depression. Triage Information Reviewed: Yes Vital Signs On Initial Exam: Initial Vitals Temp Pulse Resp BP Pulse Ox 99.3 F 132 38 120/65 97 03/20/17 11:15 03/20/17 11:15 03/20/17 11:15 03/20/17 11:15 03/20/17 11:15 Vital Signs Reviewed: Yes Diagnostics - Vital Signs Vital Signs Temp Pulse Resp BP Pulse Ox 03/20/17 11:15 99.3 F 132 38 120/65 97 - Laboratory Lab Results: Lab Results 03/20/17 03/20/17 03/20/17 Range/Units 11:29 11:29 11:29 WBC 38.2 H (3.5-10.8) 10^3/ul RBC 4.37 (4.0-5.4) 10^6/ul Hgb 13.3 L (14.0-18.0) g/dl Hct 41 L (42-52) % MCV 94 (80-94) fL MCH 30 (27-31) pg MCHC 33 (31-36) g/dl RDW 14 (10.5-15) % Plt Count 151 (150-450) 10^3/ul MPV 9 (7.4-10.4) um3 Neut % (Auto) Not Reportable Lymph % (Auto) Not Reportable [place] % (Auto) Not Reportable Eos % (Auto) Not Reportable Baso % (Auto) Not Reportable Absolute Neuts (auto) Not Reportable Absolute Lymphs (auto) Not Reportable Absolute Monos (auto) Not Reportable Absolute Eos (auto) Not Reportable Absolute Basos (auto) Not Reportable Absolute Nucleated RBC Not Reportable Neutrophils % 91 H (38-83) % Lymphocytes % 1 L (25-47) % Monocytes % 7 (0-13) % Eosinophils % 1 (0-6) % Basophils % 0 (0-2) % Nucleated RBC % Not Reportable Normal RBC Morphology Normal (Normal) Hem Pathologist Commnt Pending INR (Anticoag Therapy) (0.77-1.02) Sodium 138 (133-145) mmol/L Potassium 3.6 (3.5-5.0) mmol/L Chloride 92 L (101-111) mmol/L Carbon Dioxide 37 H (22-32) mmol/L Anion Gap 9 (2-11) mmol/L BUN 21 (6-24) mg/dL Creatinine 0.39 L (0.67-1.17) mg/dL Est GFR ( Amer) 280.8 (>60) Est GFR (Non-Af Amer) 218.3 (>60) BUN/Creatinine Ratio 53.8 H (8-20) Glucose 109 H (70-100) mg/dL Lactic Acid (0.5-2.0) mmol/L Calcium 10.0 (8.6-10.3) mg/dL Total Bilirubin 0.60 (0.2-1.0) mg/dL AST 8 L (13-39) U/L ALT 5 L (7-52) U/L Alkaline Phosphatase 56 (34-104) U/L Troponin I 0.00 (<0.04) ng/mL C-Reactive Protein 143.63 H (< 5.00) mg/L B-Natriuretic Peptide 112 H ( - 100) pg/mL Total Protein 6.6 (6.4-8.9) g/dL Albumin 2.7 L (3.2-5.2) g/dL Globulin 3.9 (2-4) g/dL Albumin/Globulin Ratio 0.7 L (1-3) 03/20/17 03/20/17 Range/Units 11:29 11:29 WBC (3.5-10.8) 10^3/ul RBC (4.0-5.4) 10^6/ul Hgb (14.0-18.0) g/dl Hct (42-52) % MCV (80-94) fL MCH (27-31) pg MCHC (31-36) g/dl RDW (10.5-15) % Plt Count (150-450) 10^3/ul MPV (7.4-10.4) um3 Neut % (Auto) Lymph % (Auto) [place] % (Auto) Eos % (Auto) Baso % (Auto) Absolute Neuts (auto) Absolute Lymphs (auto) Absolute Monos (auto) Absolute Eos (auto) Absolute Basos (auto) Absolute Nucleated RBC Neutrophils % (38-83) % Lymphocytes % (25-47) % Monocytes % (0-13) % Eosinophils % (0-6) % Basophils % (0-2) % Nucleated RBC % Normal RBC Morphology (Normal) Hem Pathologist Commnt INR (Anticoag Therapy) 1.40 H (0.77-1.02) Sodium (133-145) mmol/L Potassium (3.5-5.0) mmol/L Chloride (101-111) mmol/L Carbon Dioxide (22-32) mmol/L Anion Gap (2-11) mmol/L BUN (6-24) mg/dL Creatinine (0.67-1.17) mg/dL Est GFR ( Amer) (>60) Est GFR (Non-Af Amer) (>60) BUN/Creatinine Ratio (8-20) Glucose (70-100) mg/dL Lactic Acid 1.6 (0.5-2.0) mmol/L Calcium (8.6-10.3) mg/dL Total Bilirubin (0.2-1.0) mg/dL AST (13-39) U/L ALT (7-52) U/L Alkaline Phosphatase (34-104) U/L Troponin I (<0.04) ng/mL C-Reactive Protein (< 5.00) mg/L B-Natriuretic Peptide ( - 100) pg/mL Total Protein (6.4-8.9) g/dL Albumin (3.2-5.2) g/dL Globulin (2-4) g/dL Albumin/Globulin Ratio (1-3) Result Diagrams: 03/20/17 11:29 03/20/17 11:29 Lab Statement: Any lab studies that have been ordered have been reviewed, and results considered in the medical decision making process. - Radiology CXR Radiology Interpretation Completed By: Radiologist - STABLE RIGHT UPPER LUNG MASS. SMALL RIGHT PLEURAL EFFUSION. ED Physician has reviewed this report. - EKG 11:29 Cardiac Rate: Tachycardia EKG Rhythm: Sinus Tachycardia - at 128 BPM EKG Interpretation: diffuse ST depression nonspecific EKG Comparison: No Significant Change - 03/05/17 Re-Evaluation - Re-Evaluation 1 Re-Evaluation Time: 11:36 Comment: updated family 2 Re-Evaluation Time: 11:48 Comment: updated family Course/Dx - Course Course Of Treatment: Mr. Perales was brought in by EMS for SOB. He has a history of lung CA and is getting radiation treatments. On arrival, he was tachypneic and tachycardic with an SPO2 of 92-3 on 100% NRBM. He had a little peripheral edema that his family says is chronic and decreased BSs on the right without rales. CXR showed a large right pleural effusion vs infiltrate on the right as well as his large upper lobe mass. He was placed on vapotherm with improvement and the hospitalist service is admitting him. - Diagnoses Provider Diagnoses: Respiratory insufficiency, Pleural effusion, Lung cancer - Physician Notifications Discussed Care of Patient With: Lizbeth Boudreaux - Dr. Bosch recommended admission with hospitalist at 11:40 Time Discussed With Above Provider: 11:51 Instructed by Provider To: Admit As Inpatient - Critical Care Time Critical Care Time: 30-74 min Discharge - Discharge Plan Condition: Stable Disposition: ADMITTED TO [facility] documentation as recorded by the Praveen navarro Julia accurately reflects the service I personally performed and the decisions made by me, Marques Delaney MD.
[2017-03-20] MEDS ORDERED: Acetaminophen TAB* 325 MG PO PRN (13:59)
[2017-03-20] MEDS ORDERED: NS 0.9% 1000 ML* 1,000 ML IV SCH (14:00)
[2017-03-20] MEDS: fentaNYL PATCH 25 MCG/HR TRANSDERM SCH (14:46)
[2017-03-20] MEDS: Heparin VIAL(*) 5000 UNITS/ML VIAL (FIVE THOUSAND) SUBCUT SCH ×2 (14:46→22:00)
[2017-03-20] MEDS: Mometasone/Formoter 200/5 MDI INH SCH (19:13)
[2017-03-20] MEDS: Morphine INJ* 4 MG/ML 1 ML CARPUJECT IV PRN (20:07)
--- NOTE | 2017-03-20 22:31 | HP ---
C: Dr. Fisher * HOSPITAL MEDICINE HISTORY AND PHYSICAL: DATE OF ADMISSION: 03/20/17 PRIMARY CARE PHYSICIAN: Omar Fisher MD ATTENDING PHYSICIAN: Lizbeth Boudreaux DO * (dictation provided by Makenna Cartagena NP ). CHIEF COMPLAINT: Shortness of breath. HISTORY OF PRESENT ILLNESS: Mr. 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 Mr. Estrada was admitted to our hospital 03/05/17 through 03/08/17 with shortness of breath during which time, it was discovered that he had a large right upper lobe lung mass. He had a biopsy on 03/07/17, which showed poorly differentiated adenocarcinoma. The patient since returning home on 03/08/17 has gone on to have 5 rounds of radiation, which he completed on of this week. The patient's family confirmed that since diagnosis, he has had progressively worsening shortness of breath, cough etc. Last night, he was unable to sleep at all due to the shortness of breath. He reports not being able to eat due to this profound dyspnea. He has a productive cough now with blood in the sputum. Mr. Estrada was evaluated by EMS at home. He was on 4 L nasal cannula with the reported very low O2 saturation, though I do not have the exact value. He was placed on 10 L nasal cannula and transported to the emergency room at which time , he was found to have O2 saturation greater than 90% with heart rate returning 130s. He is now on Vapotherm. Labs show a persistent leukocytosis, which is unchanged from previous. He has CRP of 143.63, slightly up from last check on 03/05/17. BNP is 112. Chest x-ray shows the persistent right upper lobe mass, but now with right lower lobe plural effusion. PAST MEDICAL HISTORY: 1. Recent diagnosis stage III lung cancer. 2. COPD. 3. History of right inguinal hernia repair 2010. 4. Benign tumor removed from chest in the remote past. 5. Benign tumor removed from left back, question lipoma. MEDICATIONS: 1. Diazepam 2 mg p.o. daily p.r.n. 2. Fentanyl patch 25 mcg q.72 hours. 3. Advair Diskus 250/50 one puff inhaled b.i.d. 4. Hydrocodone with acetaminophen 5/325 mg 1 to 2 tabs p.o. q.4 hours p.r.n. ALLERGIES: No known drug allergies. FAMILY HISTORY: Mother had leiomyosarcoma. Brother had lung cancer. SOCIAL HISTORY: The patient quit smoking about 18 months ago. There is no report of alcohol abuse. He lives with his , who is his healthcare proxy. REVIEW OF SYSTEMS: A 14-point review of systems was completed with Mr. Estrada, all those not mentioned above were negative. PHYSICAL EXAMINATION GENERAL: Mr. Estrada is short of breath at rest. He is not in any distress, but just with a rapid respiratory rate. VITAL SIGNS: Temperature 99.3, pulse rate 121, respiratory rate 38, O2 saturation 97% on 30 L Vapotherm at 75% FiO2, blood pressure 101/53. LUNGS: Diminished through the right. Good aeration on the left. HEART: S1 and S2. No murmur, rub, or gallop and regular. ABDOMEN: Soft, nontender. Bowel sounds positive x3. EXTREMITIES: No cyanosis. No edema. NEUROLOGIC: He is alert. He is oriented x3. He moves all extremities equally. There is no facial asymmetry or focal weakness. Extraocular movements are intact. SKIN: Grossly intact. Nursing staff reports the patient has 2 small ulcerations to his low back about the level of the sacrum, neither are open. LABORATORY DATA: WBC 38.2, hemoglobin 13.3, hematocrit 41, and platelet count 151. INR 1.40. Sodium 138, potassium 3.6, chloride 92, serum bicarbonate 37, BUN 21, creatinine 0.39, glucose 109, lactic acid 1.6. CRP 143.63, troponin 0.00. Again, the chest x-ray shows persistent right upper lobe mass and new right pleural effusion. ASSESSMENT: Mr. Estrada is a 71-year-old male with past medical history of chronic obstructive pulmonary disease and recent diagnosis of advanced lung cancer who presents to the hospital today with concern for shortness of breath. Our plans are for inpatient admission to the intensive care unit as I expect his length of stay to be greater than 2 days for the followin. Shortness of breath. I suspect that this reflects progression of his underlying lung cancer now with pleural effusion though he may also have a component of postobstructive pneumonia. His white blood cell count remains unchanged. He is afebrile. Plan to treat with Levaquin. He is Vapotherm at 30 L. He will be monitored in the intensive care unit and Vapotherm can be adjusted as needed. I have spoken at length with the patient and his family regarding goals of care and regarding utilization of CPR and mechanical intubation. At this time, they plan to forego those and the patient will be DNR/ DNI. I suspect that the patient may improve, but ultimately palliative efforts and hospice would be appropriate dependent on family wishes. 2. Pain. The patient will have his fentanyl and hydrocodone p.r.n. He will also have morphine available p.r.n. for pain or air hunger. 3. Code status is DNR/DNI. TIME SPENT: Approximately 75 minutes were spent on the admission of this patient, more than half time spent with the patient at the bedside reviewing the events leading up to this hospitalization, performing the physical examination, and reviewing my plan of care. MAKENNA CARTAGENA NP [id number]/CPS #: [id number] PHI
[2017-03-21] MEDS: Morphine INJ* 4 MG/ML 1 ML CARPUJECT IV PRN ×2 (00:59→04:40)
[2017-03-21] MEDS: Heparin VIAL(*) 5000 UNITS/ML VIAL (FIVE THOUSAND) SUBCUT SCH ×3 (06:07→22:46)
[2017-03-21 06:42] LABS: Hematocrit 39 % (42-52); Hemoglobin 12.9 g/dl (14.0-18.0); Mean Corpuscular HGB Conc 33 g/dl (31-36); Mean Corpuscular Hemoglobin 31 pg (27-31); Mean Corpuscular Volume 94 fL (80-94); Mean Platelet Volume 9 um3 (7.4-10.4); Platelet Count 125 10^3/ul (150-450); Red Blood Count 4.18 10^6/ul (4.0-5.4); Red Cell Distribution Width 14 % (10.5-15); White Blood Count 35.3 10^3/ul (3.5-10.8)
[2017-03-21] MEDS: Mometasone/Formoter 200/5 MDI INH SCH ×2 (08:43→19:32)
[2017-03-21] MEDS ORDERED: Metoprolol Tartrate IV* 1 MG/ML 5 ML VIAL IV PRN (10:24)
[2017-03-21] MEDS ORDERED: methylPREDNISolone 125 MG* 2 ML VIAL IV ONE (10:25)
--- NOTE | 2017-03-21 10:32 | PN ---
Progress Note - Progress Note Date of Service: 03/21/17 SOAP: Subjective: []Marked SOB at rest, not comfortable. Had difficulty with XRT, pain with position changes. Increases SOB over several days. No fevers. Acetaminophen (Tylenol Tab*) 650 mg PO Q4H PRN PRN Reason: PAIN Hydrocodone Bitart/Acetaminophen ([place] 5-325 Tab*) 2 tab PO Q4H PRN PRN Reason: PAIN Albuterol/Ipratropium (Duoneb (Albuterol 2.5 Mg/Ipratropium 0.5 Mg)) 1 neb INH Q4H PRN PRN Reason: SOB/WHEEZING Diazepam (Valium Tab(*)) 2 mg PO DAILY PRN PRN Reason: ANXIETY Fentanyl (Duragesic Patch 25 Mcg/Hr*) 25 mcg TRANSDERM Q72H [facility] Last Admin: 03/20/17 14:46 Dose: 25 mcg Heparin Sodium (Porcine) (Heparin Vial(*)) 5,000 units SUBCUT Q8HR [facility] Last Admin: 03/21/17 06:07 Dose: 5,000 units Levofloxacin/Dextrose (Levaquin 750 Mg Ivpremix(*)) 750 mg in 150 mls @ 100 mls /hr IVPB Q24H [facility] Methylprednisolone Sodium Succinate (Solu-Medrol 125mg *) 125 mg IV ONCE ONE Stop: 03/21/17 10:26 Metoprolol Tartrate (Lopressor Iv*) 5 mg IV Q6H PRN PRN Reason: TACHYCARDIA Mometasone Furoate/Formoterol Fumar (Dulera 200/5 Mdi*) 2 puff INH BID [facility] Last Admin: 03/21/17 08:43 Dose: 2 puff Morphine Sulfate (Morphine Inj (Syringe)*) 2 mg IV Q1H PRN PRN Reason: Pain/SOB Objective: [] Vital Signs Temp Pulse Resp BP Pulse Ox 97.9 F 109 23 125/56 92 03/21/17 07:20 03/21/17 09:30 03/21/17 09:30 03/21/17 09:30 03/21/17 09:30 HEENT: thin, pale no JVD BS marked decrease both sides. tachy, 130s +BS Ext cool Assessment: []71 year old advanced NSCLC and respiratory failure. He has strained last week but has clearly deteriorated. Differential is progressive cancer, post obstructive pneumonia, radiation peritonitis, progressive COPD. There is little we can do. Will try to optimize medical manegment. I talked to the patient and his that he may this admission. They both understand and primary goal is comfort. Plan: []1. Will treat today to optimize medical therapy. - Beta shelbie to slow HR - Trial of steroids. - continue Vapotherm. 2. If not improving in 24 - 48 hrs, comfort care 3. Morphine IV for both pain and SOB 4. and daughter are coming in today.
[2017-03-21] MEDS: Levofloxacin 750 MG IVPREMIX(* 750 MG/150 ML BAG IVPB SCH (11:38)
[2017-03-21] MEDS: Morphine INJ* 2 MG/ML 1 ML SYRINGE (TWO MG - NEW SYRINGE VERSION) IV PRN (19:36)
[2017-03-22] MEDS: Morphine INJ* 2 MG/ML 1 ML SYRINGE (TWO MG - NEW SYRINGE VERSION) IV PRN ×9 (02:20→22:20)
[2017-03-22 06:11] LABS: Hematocrit 37 % (42-52); Hemoglobin 12.3 g/dl (14.0-18.0); Mean Corpuscular HGB Conc 33 g/dl (31-36); Mean Corpuscular Hemoglobin 31 pg (27-31); Mean Corpuscular Volume 93 fL (80-94); Mean Platelet Volume 9 um3 (7.4-10.4); Platelet Count 131 10^3/ul (150-450); Red Blood Count 4.02 10^6/ul (4.0-5.4); Red Cell Distribution Width 14 % (10.5-15); White Blood Count 21.1 10^3/ul (3.5-10.8)
[2017-03-22 06:15] LABS: ABS Basophils 0 10^3/ul (0-0.2); ABS Eosinophils 0 10^3/ul (0-0.6); ABS Lymphocytes 0.2 10^3/ul (1.0-4.8); ABS Monocytes 1.9 10^3/ul (0-0.8); ABS Neutrophils 18.9 10^3/ul (1.5-7.7); ABS Nucleated RBC 0 10^3/ul; Eosinophil % 0.1 % (0-6); Nucleated Red Blood Cells % 0.2
[2017-03-22] MEDS: Heparin VIAL(*) 5000 UNITS/ML VIAL (FIVE THOUSAND) SUBCUT SCH ×3 (06:49→21:29)
[2017-03-22] MEDS: methylPREDNISolone 125 MG* 2 ML VIAL IV SCH ×2 (09:17→21:29)
[2017-03-22] MEDS: Mometasone/Formoter 200/5 MDI INH SCH ×2 (09:24→19:54)
[2017-03-22] MEDS: Levofloxacin 750 MG IVPREMIX(* 750 MG/150 ML BAG IVPB SCH (12:32)
--- NOTE | 2017-03-22 16:05 | CONSULT ---
Palliative / Hospice Consult Ordering Provider: Makenna Cartagena - Subjective Code Status: DNR Advance Directives Location: In Chart MOLST Part A Completed: Yes - DNR Date: 03/20/17 MOLST Part E Completed:: Yes - DNI, no feeding tube - History or Present Illness History or Present Illness: This 71 year old man with a history of COPD who quit smoking 18 months ago, but was just diagnosed this month with a large RUL lung mass, poorly differentiated adenocarcinoma on biopsy, completed five cycles of radiation which was not particularly well tolerated, and has now been readmitted with worsening dyspnea , found to have pleural effusion and possible post-obstructive pneumonia. He has required 10 L O2 and was in the ICU with Vapotherm at 30 L yesterday. I was asked to see him to help him define his goals of care. The patient told me he was seen by Dr. Hall and offered chemotherapy. He said he understands his cancer is not curable, but as I spoke with him he was quite steadfast in his desire to prolong his life at any cost, and said he would tolerate discomfort and overwhelming fatigue as well as many other side effects in order to have a chance at a longer life. I also discussed with him the option of staying home for end-of-life care, because he said he loves being at home, and I advised him that he is likely to otherwise have more frequent and longer stays in the hospital if he is pursuing interventions to prolong his life. He is willing to accept this, and he wants to have chemotherapy. After speaking with the patient and reading Dr. Hall's note, I called the patient's and she said DDr. Hall had recommended chemotherapy BEFORE the patient had radiation treatment. She said he had not offered chemo at this point and in fact thought the patient was too weak to withstand such treatment. I revisited the patient and advised him of this, and at that point he elected the hospice benefit for home care. Lab Values: Abnormal Lab Results 03/21/17 03/22/17 03/22/17 06:20 06:03 06:03 WBC 21.1 H RBC 4.02 Hgb 12.3 L Hct 37 L MCV 93 MCH 31 MCHC 33 RDW 14 Plt Count 131 L MPV 9 Neut % (Auto) 89.7 H Lymph % (Auto) 1.0 L [place] % (Auto) 9.1 H Eos % (Auto) 0.1 Baso % (Auto) 0.1 Absolute Neuts (auto) 18.9 H Absolute Lymphs (auto) 0.2 L Absolute Monos (auto) 1.9 H Absolute Eos (auto) 0 Absolute Basos (auto) 0 Absolute Nucleated RBC 0 Nucleated RBC % 0.2 Hem Pathologist Commnt Sodium 137 Potassium 3.6 Chloride 95 L Carbon Dioxide 40 H Anion Gap 2 BUN 20 Creatinine 0.38 L Est GFR ( Amer) 289.4 Est GFR (Non-Af Amer) 225.0 BUN/Creatinine Ratio 52.6 H Glucose 180 H Calcium 9.8 Total Bilirubin 0.40 AST 10 L ALT 18 Alkaline Phosphatase 356 H Total Protein 5.8 L Albumin 2.4 L Globulin 3.4 Albumin/Globulin Ratio 0.7 L Laboratory Last Values WBC 21.1 10^3/ul (3.5-10.8) H 03/22/17 06:03 RBC 4.02 10^6/ul (4.0-5.4) 03/22/17 06:03 Hgb 12.3 g/dl (14.0-18.0) L 03/22/17 06:03 Hct 37 % (42-52) L 03/22/17 06:03 MCV 93 fL (80-94) 03/22/17 06:03 MCH 31 pg (27-31) 03/22/17 06:03 MCHC 33 g/dl (31-36) 03/22/17 06:03 RDW 14 % (10.5-15) 03/22/17 06:03 Plt Count 131 10^3/ul (150-450) L 03/22/17 06:03 MPV 9 um3 (7.4-10.4) 03/22/17 06:03 Neut % (Auto) 89.7 % (38-83) H 03/22/17 06:03 Lymph % (Auto) 1.0 % (25-47) L 03/22/17 06:03 [place] % (Auto) 9.1 % (1-9) H 03/22/17 06:03 Eos % (Auto) 0.1 % (0-6) 03/22/17 06:03 Baso % (Auto) 0.1 % (0-2) 03/22/17 06:03 Absolute Neuts (auto) 18.9 10^3/ul (1.5-7.7) H 03/22/17 06:03 Absolute Lymphs (auto) 0.2 10^3/ul (1.0-4.8) L 03/22/17 06:03 Absolute Monos (auto) 1.9 10^3/ul (0-0.8) H 03/22/17 06:03 Absolute Eos (auto) 0 10^3/ul (0-0.6) 03/22/17 06:03 Absolute Basos (auto) 0 10^3/ul (0-0.2) 03/22/17 06:03 Absolute Nucleated RBC 0 10^3/ul 03/22/17 06:03 Neutrophils % 91 % (38-83) H 03/20/17 11:29 Lymphocytes % 1 % (25-47) L 03/20/17 11:29 Monocytes % 7 % (0-13) 03/20/17 11:29 Eosinophils % 1 % (0-6) 03/20/17 11:29 Basophils % 0 % (0-2) 03/20/17 11:29 Nucleated RBC % 0.2 03/22/17 06:03 Normal RBC Morphology Normal (Normal) 03/20/17 11:29 Hem Pathologist Commnt 03/21/17 06:20 INR (Anticoag Therapy) 1.40 (0.77-1.02) H 03/20/17 11:29 Sodium 137 mmol/L (133-145) 03/22/17 06:03 Potassium 3.6 mmol/L (3.5-5.0) 03/22/17 06:03 Chloride 95 mmol/L (101-111) L 03/22/17 06:03 Carbon Dioxide 40 mmol/L (22-32) H 03/22/17 06:03 Anion Gap 2 mmol/L (2-11) 03/22/17 06:03 BUN 20 mg/dL (6-24) 03/22/17 06:03 Creatinine 0.38 mg/dL (0.67-1.17) L 03/22/17 06:03 Est GFR ( Amer) 289.4 (>60) 03/22/17 06:03 Est GFR (Non-Af Amer) 225.0 (>60) 03/22/17 06:03 BUN/Creatinine Ratio 52.6 (8-20) H 03/22/17 06:03 Glucose 180 mg/dL (70-100) H 03/22/17 06:03 Lactic Acid 1.6 mmol/L (0.5-2.0) 03/20/17 11:29 Calcium 9.8 mg/dL (8.6-10.3) 03/22/17 06:03 Total Bilirubin 0.40 mg/dL (0.2-1.0) 03/22/17 06:03 AST 10 U/L (13-39) L 03/22/17 06:03 ALT 18 U/L (7-52) 03/22/17 06:03 Alkaline Phosphatase 356 U/L (34-104) H 03/22/17 06:03 Troponin I 0.01 ng/mL (<0.04) 03/20/17 16:00 C-Reactive Protein 143.63 mg/L (< 5.00) H 03/20/17 11:29 B-Natriuretic Peptide 112 pg/mL (-100) H 03/20/17 11:29 Total Protein 5.8 g/dL (6.4-8.9) L 03/22/17 06:03 Albumin 2.4 g/dL (3.2-5.2) L 03/22/17 06:03 Globulin 3.4 g/dL (2-4) 03/22/17 06:03 Albumin/Globulin Ratio 0.7 (1-3) L 03/22/17 06:03 - Objective Active Medications: Acetaminophen (Tylenol Tab*) 650 mg PO Q4H PRN PRN Reason: PAIN Hydrocodone Bitart/Acetaminophen ([place] 5-325 Tab*) 2 tab PO Q4H PRN PRN Reason: PAIN Albuterol/Ipratropium (Duoneb (Albuterol 2.5 Mg/Ipratropium 0.5 Mg)) 1 neb INH Q4H PRN PRN Reason: SOB/WHEEZING Diazepam (Valium Tab(*)) 2 mg PO DAILY PRN PRN Reason: ANXIETY Fentanyl (Duragesic Patch 25 Mcg/Hr*) 25 mcg TRANSDERM Q72H [facility] Last Admin: 03/20/17 14:46 Dose: 25 mcg Heparin Sodium (Porcine) (Heparin Vial(*)) 5,000 units SUBCUT Q8HR [facility] Last Admin: 03/22/17 14:45 Dose: 5,000 units Levofloxacin/Dextrose (Levaquin 750 Mg Ivpremix(*)) 750 mg in 150 mls @ 100 mls /hr IVPB Q24H [facility] Last Admin: 03/22/17 12:32 Dose: 100 mls/hr Methylprednisolone Sodium Succinate (Solu-Medrol 125mg *) 60 mg IV Q12H [facility] Last Admin: 03/22/17 09:17 Dose: 60 mg Metoprolol Tartrate (Lopressor Iv*) 5 mg IV Q6H PRN PRN Reason: TACHYCARDIA Last Admin: 03/21/17 11:00 Dose: 5 mg Mometasone Furoate/Formoterol Fumar (Dulera 200/5 Mdi*) 2 puff INH BID [facility] Last Admin: 03/22/17 09:24 Dose: 2 puff Morphine Sulfate (Morphine Inj (Syringe)*) 2 mg IV Q1H PRN PRN Reason: Pain/SOB Last Admin: 03/22/17 14:42 Dose: 2 mg Vital Signs: Vital Signs: Temp Pulse Resp BP Pulse Ox 98.3 F 104 33 110/58 92 03/22/17 12:00 03/22/17 12:30 03/22/17 14:42 03/22/17 12:30 03/22/17 12:30 Patient Weight: Weight 117 lb 11.629 oz Intake and Output: Intake & Output 03/20/17 03/21/17 03/22/17 03/23/17 06:59 06:59 06:59 06:59 Intake Total 2179 1280 250 Output Total 175 700 100 Balance 2003 580 150 Weight 120 lb 2.431 oz 117 lb 11.629 oz Intake: IV Fluids 1539 NS (0.9%) 539 Oral 640 1280 250 Output: Urine 175 700 100 ADLs: Meal Record Start: 03/20/17 14: 07 Freq: , Status: Active Protocol: Created 03/20/17 14:07 System (Rec: 03/20/17 14:07 System [id number]) Document 03/21/17 09:00 [id number] (Rec: 03/21/17 11:11 [id number] ICU-C25) Document 03/21/17 13:00 [id number] (Rec: 03/21/17 15:55 [id number] ICU-C25) Document 03/21/17 18:00 [id number] (Rec: 03/21/17 18:12 [id number] ICU-C25) Document 03/22/17 09:00 [id number] (Rec: 03/22/17 11:09 [id number] ICU-C12) Document 03/22/17 13:00 [id number] (Rec: 03/22/17 14:10 [id number] ICU-C20) Intake and Output Start: 03/20/17 14: 07 Freq: 06,14,22 Status: Active Protocol: Created 03/20/17 14:07 System (Rec: 03/20/17 14:07 System ICU-C03) Document 03/20/17 21:54 [id number] (Rec: 03/20/17 21:55 [id number] CMC-RDC2) Document 03/21/17 01:00 [id number] (Rec: 03/21/17 01:02 [id number] [facility]-RDC2) Document 03/21/17 14:00 [id number] (Rec: 03/21/17 15:55 [id number] ICU-C25) Document 03/21/17 22:00 [id number] (Rec: 03/21/17 22:10 [id number] C[facility]-RDC2) Document 03/22/17 02:00 [id number] (Rec: 03/22/17 02:20 [id number] CMC-RDC2) Document 03/22/17 06:00 [id number] (Rec: 03/22/17 06:39 [id number] ICU-C10) Document 03/22/17 06:00 [id number] (Rec: 03/22/17 06:17 [id number] CMC-RDC2) Document 03/22/17 12:35 [id number] (Rec: 03/22/17 12:35 [id number] ICU-M15) Document 03/22/17 14:00 [id number] (Rec: 03/22/17 14:10 [id number] ICU-C20) Head: Symmetrical Eyes: No Scleral Icterus Ears/Nose/Mouth/Throat: NL Teeth, Lips, Gums Neck: Trachea Midline Cardiovascular: RRR Respiratory: Symmetrical Chest Expansion and Respiratory Effort Abdominal: NL Sounds; No Tenderness; No Distention Extremities: No Clubbing, Cyanosis - Assessment Assessment: This patient has very advanced COPD, and now has a large poorly differentiated pulmonary adenocarcinoma on top of that. He is still requiring 10 LPM of O2, and he is dyspneic at rest, and frankly breathless with the effort of conversing. He has very poor air movement. He is malnourished with an albumin of 2.4. His alk phos is very elevated, as is his wbc and his CRP. He will certainly qualify for hospice services with a diagnosis of lung cancer and a secondary of COPD, and with a short prognosis of a month or so, but he is not totally reconciled to that prospect, despite my description of the many benefits of being able to stay at home in comfort with nursing and [employer] care there. He still wants to pursue the chemotherapy that Dr. Hall offered him earlier in the month, and hopes to be strong enough to tolerate it. Please [facility] the [facility] at the time of discharge. Thanks for asking for palliative input. - Plan Consult Plan (MU): Hospice - Time On Unit Date of Evaluation: 03/22/17 Hospice Consult Time in: 15:30 Hospice Consult Time Out: 17:00 Hospice Consult Time Total: 90 > 50% of Time Spend In Counseling or Coordinating Care: Yes
[2017-03-22] MEDS: Collagenase 250 MG/GM OINT* 30 GM TOPICAL SCH (21:39)
[2017-03-23] MEDS: Morphine INJ* 2 MG/ML 1 ML SYRINGE (TWO MG - NEW SYRINGE VERSION) IV PRN ×3 (02:55→14:06)
[2017-03-23] MEDS: Heparin VIAL(*) 5000 UNITS/ML VIAL (FIVE THOUSAND) SUBCUT SCH ×3 (06:27→21:22)
[2017-03-23] MEDS: Mometasone/Formoter 200/5 MDI INH SCH ×2 (07:38→19:45)
[2017-03-23] MEDS: methylPREDNISolone 125 MG* 2 ML VIAL IV SCH (10:28)
[2017-03-23] MEDS: Levofloxacin 750 MG IVPREMIX(* 750 MG/150 ML BAG IVPB SCH (14:05)
[2017-03-23] MEDS: fentaNYL PATCH 25 MCG/HR TRANSDERM SCH (14:38)
[2017-03-23] MEDS: Collagenase 250 MG/GM OINT* 30 GM TOPICAL SCH (21:22)
[2017-03-23] MEDS: Morphine ORAL CONCENTRATE* 5 MG/0.25 ML ORAL.SYRIN PO PRN (21:30)
[2017-03-24] MEDS: Morphine ORAL CONCENTRATE* 5 MG/0.25 ML ORAL.SYRIN PO PRN ×6 (00:24→17:02)
[2017-03-24] MEDS: Heparin VIAL(*) 5000 UNITS/ML VIAL (FIVE THOUSAND) SUBCUT SCH ×2 (06:23→14:47)
[2017-03-24] MEDS ORDERED: fentaNYL Patch Check Q Shift 1 NOTE SCH (07:00)
[2017-03-24 07:43] VITALS: BP 114/53
[2017-03-24] MEDS ORDERED: predniSONE TAB* 20 MG PO SCH (09:00)
[2017-03-24] MEDS: Mometasone/Formoter 200/5 MDI INH SCH (09:16)
[2017-03-24] MEDS: Collagenase 250 MG/GM OINT* 30 GM TOPICAL SCH (11:09)
--- NOTE | 2017-03-24 11:56 | DS ---
- Discharge Summary Admission Date: 03/20/17 Discharge Date: 03/24/17 Discharge Diagnosis: 1. Advanced Non-Small Cell Lung Cancer: end stage, transition to hospice 2. SOB: stable with O2 and meds 3. Pain: well controlled 4. Anxiety: well controlled Discharge Medications Medication Instructions Recorded Confirmed Type Diazepam [Valium] 2 mg PO DAILY PRN #30 tab MDD 1 03/14/17 03/20/17 Rx tablet Fluticasone-Salmeterol 250-50* 1 puff INH BID #1 diskus MDD 2 03/14/17 03/20/17 Rx [Advair Diskus 250-50*] puffs fentaNYL PATCH 25 MCG/HR* 25 mcg TRANSDERM Q72H #10 patch 03/16/17 03/20/17 Rx [Duragesic PATCH 25 Mcg/Hr*] MDD 1 patch [id number] Acetaminophen TAB* [Tylenol TAB*] 650 mg PO Q4H PRN tab 03/24/17 Rx Atropine 1% SL* 2 drop SL Q2H PRN #1 bottle 03/24/17 Rx LORazepam TAB(*) [Ativan 0.5 MG 0.5 mg PO Q4H PRN #30 tab MDD 6 03/24/17 Rx TAB (*)] tabs Morphine ORAL CONCENTRATE* 5 mg PO Q2H PRN #30 ml MDD 60 mg 03/24/17 Rx predniSONE TAB* [Deltasone TAB*] 40 mg PO DAILY #24 tab 03/24/17 Rx Hospital Course: Please see admission note for full H&P, however briefly, Mr. Estrada is known to our service due to his recent diagnosis of locally advanced adenocarcinoma of the lung. He received radiation to the large right mass, though unfortunately this did not show much improvement in symptoms. He presented to the ER on 03/20 with progressive SOB and was admitted to the ICU with concern for progressive disease vs. post obstructive pneumonia vs. secondary pleural effusion. By 03/22 he was transferred out of the ICU to a medical floor where he has been very stable. Mr. Estrada was seen for palliative/hospice consult on 03/22 and was initially hesitant to pursue hospice due to his desire to consider treatment options, however, due to poor performance status and concern for limited response to RT he is felt to be a poor candidate for therapy and he has opted to pursue comfort care measures in his home setting. He and his family have decided to pursue hospice in the home, however sign on will likely be delayed until 03/28, still he very much wants to go home and with good support and appropriate durable equipment this has been deemed very appropriate. He will be discharge with orders for durable equipment including a hospital bed due to his need for positioning that a normal bed can not provide as his decreased respiratory status requires frequent repositioning. We have also recommended a rollating walker to provide Mr. Estrada with some independence in the home and to allow him the ability to transfer to the bathroom safely as due to his advanced disease he requires assistance with ambulation to prevent falls. Comfort pack medications were sent to his pharmacy and we have reviewed the use of these medications to decrease symptoms. Plan of care was reviewed at length and all questions were answered. He will transferred via stretcher to his home once the durable equipment has been delivered. >40 min. spent with >20% face to face counseling
== END 2017-03-24 17:15 | disposition home or self-care (01) | DRG 193 ==
LOC: ED 11:05 → ICU 13:25 → MED 03-22 15:00
PROVIDERS: ADMIT Hospitalist; ATTEND Internal Medicine Hematology & Oncology
DX: J18.9 Pneumonia, unspecified organism (principal); J96.90 Respiratory failure, unspecified, unspecified whether with hypoxia or hypercapnia; E46 Unspecified protein-calorie malnutrition; R64 Cachexia; J90 Pleural effusion, not elsewhere classified; J44.0 Chronic obstructive pulmonary disease with (acute) lower respiratory infection; J44.9 Chronic obstructive pulmonary disease, unspecified; C34.11 Malignant neoplasm of upper lobe, right bronchus or lung; Z68.1 Body mass index [BMI] 19.9 or less, adult; Z66 Do not resuscitate; F41.9 Anxiety disorder, unspecified; Z83.3 Family history of diabetes mellitus; Z87.891 Personal history of nicotine dependence; Z80.1 Family history of malignant neoplasm of trachea, bronchus and lung; Z51.5 Encounter for palliative care
CPT/HCPCS: 36415; 71045; 80048; 80053; 83605; 83880; 84484; 85025; 85060; 85610; 86140; 87040; 87641; 93005; 94640; 94760; 99232; 99239; 99284; A9270-GY; J1644; J2270; J2930; J3490; J7512